=== PATIENT | female | born 1945 ===

== ENCOUNTER 2022-07-14 10:00 | Inpatient (IN) | payer OTHER ==
[~2022-07-14] VITALS: Ht 152.4 cm; Wt 59.0 kg
[2022-07-14] MEDS ORDERED: CRESTOR10 MG PO (13:24)
[2022-07-14] MEDS ORDERED: ATACAND HCT 321 EAC1 PO (13:24)
[2022-07-14] MEDS ORDERED: ZOLOFT50 MG PO (13:24)
[2022-07-14] MEDS ORDERED: NORVASC5 MG PO (13:25)
[2022-07-14] MEDS ORDERED: METFORMIN HCL500 M3 PO (13:25)
[2022-07-14] MEDS ORDERED: TOPROL XL100 M1 PO (13:25)
[2022-07-14] MEDS ORDERED: ELAVIL PO (13:26)
[2022-07-16] MEDS ORDERED: AMITRIPTYLINE H75 MG (10:13)
== END 2022-07-17 13:46 | disposition home or self-care (01) | DRG 741 ==
LOC: OB/GYN 07-16 06:25 → O/R 07-16 06:25 → OB/GYN 07-16 10:00
PROVIDERS: ADMIT Obstetrics & Gynecology Gynecologic Oncology; ATTEND Obstetrics & Gynecology Gynecologic Oncology
PROC: 0UT24ZZ Resection of Bilateral Ovaries, Percutaneous Endoscopic Approach (ICD-10-PCS; 2022-07-16)
PROC: 0UT74ZZ Resection of Bilateral Fallopian Tubes, Percutaneous Endoscopic Approach (ICD-10-PCS; 2022-07-16)
PROC: 07BC4ZZ Excision of Pelvis Lymphatic, Percutaneous Endoscopic Approach (ICD-10-PCS; 2022-07-16)
PROC: 0UT94ZZ Resection of Uterus, Percutaneous Endoscopic Approach (ICD-10-PCS; principal; 2022-07-16 13:45)
DX: C54.1 Malignant neoplasm of endometrium (principal); I11.9 Hypertensive heart disease without heart failure; E11.9 Type 2 diabetes mellitus without complications; Z79.84 Long term (current) use of oral hypoglycemic drugs